=== PATIENT | male | born 1980 | race Native Hawaiian/Other Pacific Islander ===

== ENCOUNTER 2017-02-12 17:31 | Emergency (ER) | payer OTHER ==
[~2017-02-12] VITALS: Ht 175.3 cm; Wt 70.3 kg
--- NOTE | 2017-02-12 18:58 | NUR ---
pt is in room #1b. dr Plunkett evaluated the pt.
--- NOTE | 2017-02-12 19:56 | NUR ---
Sutures placed by Dr. Medina, wound cleansed with normal saline, ban aid applied. Patient discharged to home in stable conditon. Written and verbal after care instructions given. Patient verbalizes understanding of instructions. pstient left with stable gait.
[2017-02-12 19:57] VITALS: BP 109/76
== END 2017-02-12 19:57 | disposition home or self-care (01) ==
LOC: ER 17:38
DX: S61.412A Laceration without foreign body of left hand, initial encounter (principal); W25.XXXA Contact with sharp glass, initial encounter; Y93.89 Activity, other specified; Y99.8 Other external cause status; Y92.89 Other specified places as the place of occurrence of the external cause
CPT/HCPCS: 73130; A4663